=== PATIENT | male | born 1975 | race Caucasian/White ===

== ENCOUNTER 2021-03-26 22:47 | Emergency (ER) | payer MEDICARE, MEDICAID ==
[2021-03-26] MEDS ORDERED: fentaNYL 100 MCG/2 ML SDV IVPUSH ONE (23:06)
[2021-03-26 23:38] LABS: ANION GAP 17.8 mEq/L (7-13); CHLORIDE,CL 99 mmol/L (98-107); SODIUM,NA 137 mmol/L (136-145)
--- NOTE | 2021-03-26 23:52 | CT ---
PROCEDURE INFORMATION: Exam: CT Head Without Contrast Exam date and time: 03/26/2021 11:19 PM Age: 45 years old Clinical indication: Other: Pain; Additional info: Rolled 500# wheelchair, neck pain TECHNIQUE: Imaging protocol: Computed tomography of the head without contrast. Radiation optimization: All CT scans at this facility use at least one of these dose optimization techniques: automated exposure control; mA and/or kV adjustment per patient size (includes targeted exams where dose is matched to clinical indication); or iterative reconstruction. COMPARISON: No relevant prior studies available. FINDINGS: Brain: Normal. No hemorrhage. Unremarkable white matter. No mass effect. Cerebral ventricles: No ventriculomegaly. Paranasal sinuses: Mucosal thickening and fluid is seen within the ethmoidal sinuses bilaterally. Mastoid air cells: Visualized mastoid air cells are well aerated. Bones/joints: Unremarkable. No acute fracture. Soft tissues: Unremarkable. IMPRESSION: There are no acute intracranial findings.
[2021-03-26] MEDS ORDERED: HYDROmorphone 1 MG/ML Syringe IVPUSH ONE (23:54)
--- NOTE | 2021-03-26 23:59 | CT ---
PROCEDURE INFORMATION: Exam: CT Cervical Spine Without Contrast Exam date and time: 03/26/2021 11:19 PM Age: 45 years old Clinical indication: Other: Pain; Prior surgery; Surgery date: 6+ months; Additional info: Rolled 500# wheelchair, neck pain TECHNIQUE: Imaging protocol: Computed tomography images of the cervical spine without contrast. Radiation optimization: All CT scans at this facility use at least one of these dose optimization techniques: automated exposure control; mA and/or kV adjustment per patient size (includes targeted exams where dose is matched to clinical indication); or iterative reconstruction. COMPARISON: No relevant prior studies available. FINDINGS: Bones/joints: Status post ACDF C4-T1. There is anterior wedge deformity of the C6 vertebral body with partial fusion C6 and C7 vertebral bodies posteriorly. Discs/Spinal canal/Neural foramina: Severe loss of disc height is seen at the 2-C3 level with anterior-posterior bridging osteophytes present. At the C3-C4 level, there is a vertebral bony bar seen to the left midline which in combination with uncovertebral joint hypertrophy severely narrows the left neural foramen. There is moderate uncovertebral joint hypertrophy seen on the right moderately narrowing the right neural foramen. There is posterior bony bar formation present at the C4-C5 which in combination with bilateral facet hypertrophy narrows the neural foramina, right worse than left. Lungs: Lung apices are normal. Soft tissues: Unremarkable. IMPRESSION: 1. There are no acute osseous findings. 2. Degenerative disc and degenerative joint disease as described.
--- NOTE | 2021-03-27 00:14 | CT ---
PROCEDURE INFORMATION: Exam: CT Thoracic Spine Without Contrast Exam date and time: 03/26/2021 11:19 PM Age: 45 years old Clinical indication: Other: Rolled wheelchair/pain; Additional info: Fall TECHNIQUE: Imaging protocol: Computed tomography images of the thoracic spine without contrast. Radiation optimization: All CT scans at this facility use at least one of these dose optimization techniques: automated exposure control; mA and/or kV adjustment per patient size (includes targeted exams where dose is matched to clinical indication); or iterative reconstruction. COMPARISON: No relevant prior studies available. FINDINGS: Vertebrae: Postsurgical changes are noted in the lower cervical spine, as described on the dedicated cervical spine CT performed at the same time. There is normal alignment in the thoracic spine. There is preservation of the vertebral body heights. No acute fracture is identified. The facet joints are normally aligned and articulated. There is multilevel facet joint arthropathy, most pronounced at the T5-6 level. Discs/Spinal canal/Neural foramina: There is disc space foreshortening with thick bridging osteophytes, especially noted from T7 through L2. The central canal caliber is satisfactorily maintained. There is neural foraminal stenosis the which is most pronounced on the right at T4-5. Soft tissues: The paravertebral soft tissues are within normal limits. Pleural spaces: There is no evidence of pneumothorax or pleural effusion. Gallbladder and bile ducts: The gallbladder is only partially imaged but it appears quite distended, measuring at least 5.1 cm in diameter. IMPRESSION: 1. No acute fracture or malalignment identified. 2. Distended gallbladder, only partially visualized.
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
== END 2021-03-27 01:49 | disposition home or self-care (01) ==
LOC: DL.ED 22:47
DX: S00.03XA Contusion of scalp, initial encounter (principal); M54.2 Cervicalgia; Z87.828 Personal history of other (healed) physical injury and trauma; Z88.0 Allergy status to penicillin; W01.0XXA Fall on same level from slipping, tripping and stumbling without subsequent striking against object, initial encounter
CPT/HCPCS: 36415; 70450; 72125; 72128; 80053; 80307; 85025; 96374; 99284; J3010